=== PATIENT | female | born 1990 | race African-American/Black ===

== ENCOUNTER 2017-09-02 10:28 | Emergency (ER) | payer BC ==
--- NOTE | 2017-09-02 10:58 | ER Document Report ---
ED Medical Screen (RME) - General Chief Complaint: Pelvic Pain Stated Complaint: ABDOMINAL PAIN Time Seen by Provider: 09/02/17 10:55 Mode of Arrival: Ambulatory Information source: Patient TRAVEL OUTSIDE OF THE [place] IN LAST 30 DAYS: No - HPI Patient complains to provider of: R pelvic pain Onset: Yesterday - pt with h/o ovarian cysts with c/o R pelvic pain for the past day -- "I think I rupturred a cyst on my ovary." - Related Data Allergies/Adverse Reactions: No Known Allergies Allergy (Verified 09/02/17 10:53) Home Medications: Current Home Medications No Home Medications 09/02/17 [History] Past Medical History - General Last Menstrual Period: mirena - Social History Chew tobacco use (# tins/day): No Frequency of alcohol use: Occasional Drug Abuse: None Renal/ Medical History: Denies: Hx Peritoneal Dialysis Physical Exam - Vital signs Vitals: Temp Pulse Resp BP Pulse Ox 98.2 F 77 18 107/67 100 09/02/17 10:44 09/02/17 10:44 09/02/17 10:44 09/02/17 10:44 09/02/17 10:44 Course - Vital Signs Vital signs: Temp Pulse Resp BP Pulse Ox 98.2 F 77 18 107/67 100 09/02/17 10:44 09/02/17 10:44 09/02/17 10:44 09/02/17 10:44 09/02/17 10:44
--- NOTE | 2017-09-02 12:18 | RADIOLOGY REPORT (SQ) ---
EXAM DESCRIPTION: U/S NON-OB PELVIS TV W/O DOP COMPLETED DATE/TIME: 09/02/2017 11:56 am REASON FOR STUDY: R-side pelvic pain COMPARISON: None. TECHNIQUE: Dynamic and static grayscale images acquired of the pelvis via transvaginal approach and recorded on PACS. Additional selected color Doppler and spectral images recorded. LIMITATIONS: None. FINDINGS: UTERUS: The uterus demonstrates normal echogenicity measuring 7.3 x 3.9 x 3.4 cm. ENDOMETRIAL STRIPE: Endometrium measures 4 mm which is normal. There are shadowing echo densities n oted within the endometrial canal compatible with changes of an IUD by history. CERVIX: No nabothian cysts. RIGHT OVARY: The right ovary measures 5.1 x 3.2 x 2.7 cm demonstrating Doppler flow. Within the right ovary there is a 3.5 x 2 x 1.6 cm ovarian cysts. LEFT OVARY: The left ovary measures 1.7 x 1.2 x 1.3 cm with Doppler flow. FREE FLUID: Moderate amount of free fluid within the cul-de-sac. IMPRESSION: 1. Evidence of and 5.1 x 3.2 x 2.7 cm right ovarian cyst. Moderate amount of free fluid within the cul de sac. These findings could be secondary to recent ruptured ovarian follicle. Clin ical correlation with beta HCG would be useful to exclude the possibility of ectopic . 2 . IUD noted noted within the endometrial canal. TECHNICAL DOCUMENTATION: JOB ID: [id number] [employer]- All Rights Reserved
[2017-09-02 12:39] LABS: ABSOLUTE BASOPHILS # (AUTO) 0.1 10^3/uL (0.0-0.2); ABSOLUTE EOSINOPHILS # (AUTO) 0.1 10^3/uL (0.0-0.6); ABSOLUTE LYMPHOCYTES (AUTO) 2.3 10^3/uL (0.5-4.7); ABSOLUTE MONOCYTES (AUTO) 0.7 10^3/uL (0.1-1.4); BASOPHILS % (AUTO) 0.5 % (0-2); EOSINOPHILS % (AUTO) 0.6 % (0-6); HEMATOCRIT 38.9 % (36.0-47.0); HEMOGLOBIN 12.7 g/dL (12.0-15.5); MEAN CORPUSCULAR HEMOGLOBIN 26.1 pg (27.0-33.4); MEAN CORPUSCULAR HGB CONC 32.6 g/dL (32.0-36.0); MEAN CORPUSCULAR VOLUME 80 fl (80-97); MONOCYTES % (AUTO) 6.1 % (3-13); PLATELET COUNT 323 10^3/uL (150-450); RED BLOOD COUNT 4.86 10^6/uL (3.72-5.28); RED CELL DISTRIBUTION WIDTH 13.5 % (11.5-14.0); SEGMENTED NEUTROPHILS % (AUTO) 73.8 % (42-78); TOTAL CELLS COUNTED % (AUTO) 100 %; WHITE BLOOD COUNT 12.2 10^3/uL (4.0-10.5)
[2017-09-02 12:52] LABS: APPEARANCE,URINE CLEAR; BILIRUBIN,URINE NEGATIVE (NEGATIVE); COLOR,URINE YELLOW; GLUCOSE, URINE NEGATIVE (NEGATIVE); KETONES,URINE NEGATIVE (NEGATIVE); LEUKOCYTE ESTERASE,URINE NEGATIVE (NEGATIVE); NITRITE,URINE NEGATIVE (NEGATIVE); PROTEIN,URINE NEGATIVE (NEGATIVE); URINE SPECIFIC GRAVITY 1.015; UROBILINOGEN,URINE NEGATIVE mg/dL (<2.0)
[2017-09-02 12:57] LABS: ALANINE AMINOTRANSFERASE 23 U/L (9-52); ALBUMIN 4.4 g/dL (3.5-5.0); ALKALINE PHOSPHATASE 70 U/L (38-126); ANION GAP 8 (5-19); ASPARTATE AMINO TRANSFERASE 18 U/L (14-36); BILIRUBIN,DIRECT 0.2 mg/dL (0.0-0.4); BILIRUBIN,TOTAL 0.6 mg/dL (0.2-1.3); BLOOD UREA NITROGEN 10 mg/dL (7-20); CALCIUM 9.9 mg/dL (8.4-10.2); CARBON DIOXIDE 28 mmol/L (22-30); CHLORIDE 103 mmol/L (98-107); GLUCOSE 86 mg/dL (75-110); TOTAL PROTEIN 7.1 g/dL (6.3-8.2)
--- NOTE | 2017-09-02 13:34 | ER Document Report ---
ED General - General Chief Complaint: Pelvic Pain Stated Complaint: ABDOMINAL PAIN Time Seen by Provider: 09/02/17 10:55 Mode of Arrival: Ambulatory TRAVEL OUTSIDE OF THE [place] IN LAST 30 DAYS: No - HPI Patient complains to provider of: Right lower quadrant abdominal pain Notes: Acute onset of sharp right lower quadrant abdominal pain at 9:00 this morning. Patient states similar to when she had an ovarian cyst rupture in the past. Patient denies any fevers chills nausea vomiting diarrhea. Patient resting comfortably upon my evaluation. - Related Data Allergies/Adverse Reactions: No Known Allergies Allergy (Verified 09/02/17 10:53) Past Medical History - General Information source: Patient Last Menstrual Period: mirena - Social History Smoking Status: Never Smoker Chew tobacco use (# tins/day): No Frequency of alcohol use: Occasional Drug Abuse: None Family History: Reviewed & Not Pertinent Patient has suicidal ideation: No Patient has homicidal ideation: No Renal/ Medical History: Denies: Hx Peritoneal Dialysis Review of Systems - Review of Systems Constitutional: No symptoms reported EENT: No symptoms reported Cardiovascular: No symptoms reported Respiratory: No symptoms reported Gastrointestinal: Abdominal pain Genitourinary: No symptoms reported Female Genitourinary: No symptoms reported Musculoskeletal: No symptoms reported Skin: No symptoms reported Hematologic/Lymphatic: No symptoms reported Neurological/Psychological: No symptoms reported -: Yes All other systems reviewed and negative Physical Exam - Vital signs Vitals: Temp Pulse Resp BP Pulse Ox 98.2 F 77 18 107/67 100 09/02/17 10:44 09/02/17 10:44 09/02/17 10:44 09/02/17 10:44 09/02/17 10:44 Interpretation: Normal - General General appearance: Appears well, Alert - HEENT Head: Normocephalic, Atraumatic Eyes: Normal Pupils: PERRL - Respiratory Respiratory status: No respiratory distress Chest status: Nontender Breath sounds: Normal Chest palpation: Normal - Cardiovascular Rhythm: Regular Heart sounds: Normal auscultation Murmur: No - Abdominal Inspection: Normal Distension: No distension Bowel sounds: Normal Tenderness: Tender - Right lower quadrant abdominal pain mild to palpation Organomegaly: No organomegaly - Back Back: Normal, Nontender - Extremities General upper extremity: Normal inspection, Nontender, Normal color, Normal ROM , Normal temperature General lower extremity: Normal inspection, Nontender, Normal color, Normal ROM , Normal temperature, Normal weight bearing. No: Jamie's sign - Neurological Neuro grossly intact: Yes Cognition: Normal Orientation: AAOx4 Sudha Coma Scale Eye Opening: Spontaneous Sudha Coma Scale Verbal: Oriented [place] Coma Scale Motor: Obeys Commands [place] Coma Scale Total: 15 Speech: Normal Motor strength normal: LUE, RUE, LLE, RLE Sensory: Normal - Psychological Associated symptoms: Normal affect, Normal mood - Skin Skin Temperature: Warm Skin Moisture: Dry Skin Color: Normal Course - Re-evaluation Re-evalutation: 09/02/17 14:55 Ultrasound is consistent with a ruptured ovarian cyst test is negative. Patient examinations not really consistent HPI is not consistent with acute appendicitis. Patient denies any vaginal discharge defers pelvic exam at this time. Patient will be discharged home patient is to follow-up with PROPERTY ASSESSMENT MONITOR - Vital Signs Vital signs: Temp Pulse Resp BP Pulse Ox 98.2 F 80 16 103/59 L 100 09/02/17 10:44 09/02/17 14:00 09/02/17 14:00 09/02/17 14:00 09/02/17 14:00 - Laboratory Result Diagrams: 09/02/17 12:30 09/02/17 12:30 Laboratory results interpreted by me: 09/02/17 12:30 WBC 12.2 H MCH 26.1 L Absolute Neutrophils 9.0 H Discharge - Discharge Clinical Impression: Ruptured ovarian cyst Ovarian cyst Qualifiers: Laterality: right Qualified Code(s): N83.201 - Unspecified ovarian cyst, right side Disposition: HOME, SELF-CARE Instructions: Observation for Appendicitis ([facility]), Ovarian Cyst ([facility]) Additional Instructions: Laboratory findings and ultrasound today are consistent with a ruptured ovarian cyst. Please follow-up with your PROPERTY ASSESSMENT MONITOR or the PROPERTY ASSESSMENT MONITOR provided. Return to the ER symptoms worsen. Take Tylenol Motrin for your pain control please Prescriptions: Ibuprofen [Motrin 600 Mg Tablet] 600 mg PO TID #30 tablet Referrals: [facility] [Provider Group] - Follow up as needed
[2017-09-02 14:01] VITALS: BP 103/59
== END 2017-09-02 14:03 | disposition home or self-care (01) ==
LOC: ER 10:28
DX: N83.201 Unspecified ovarian cyst, right side (principal); R10.31 Right lower quadrant pain
CPT/HCPCS: 36415; 76830; 80053; 81001; 81025; 85025; 99284